=== PATIENT | female | born 1945 | race Caucasian/White ===

== ENCOUNTER 2019-01-14 09:25 | Outpatient (REF) | payer OTHER, SELFPAY ==
[2019-01-14 18:57] LABS: Calculated LDL 125 mg/dL; Cholesterol 190 mg/dL (50-200); Glucose 92 mg/dL (70-100); HDL Cholesterol 57 mg/dL (40-60); Triglyceride 42 mg/dL (30-150)
== END 2019-01-14 09:45 ==
LOC: NCHCN 09:25
PROVIDERS: PCP Physician Assistant; Visit Provider Internal Medicine
DX: E78.5 Hyperlipidemia, unspecified (principal)
CPT/HCPCS: 80048; 80061; 82947; 83721

== ENCOUNTER 2019-04-17 09:06 | Outpatient (REF) | payer OTHER, SELFPAY ==
[2019-04-17 19:19] LABS: Hemoglobin A1C 6.1 % (4.5-6.2)
== END 2019-04-17 09:26 ==
LOC: NCHCN 09:06
PROVIDERS: PCP Physician Assistant; Visit Provider Internal Medicine
DX: R73.03 Prediabetes (principal)
CPT/HCPCS: 83036

== ENCOUNTER → 2023-02-28 10:23 | Outpatient (CLI) | payer MEDICARE, SELFPAY ==
--- NOTE | 2023-02-28 | DI.US_ITS ---
Exam(s) US LOWER EXTREMITY VENOUS LT EXAM: US LOWER EXTREMITY VENOUS LT CLINICAL HISTORY: SWELLING LEFT LOWER LEG R22.42 R/O DVT. TECHNIQUE: Lower extremity venous ultrasound performed using grayscale, color-flow, and spectral Do ppler analysis. COMPARISON: No exams were available for comparison FINDINGS: The common femoral, profundus femoral through mid femoral vein veins demonstrate normal compressibili ty, augmentation, and color Doppler.Thrombus is visible from the distal femoral vein through the post erior tibial and peroneal veins. No saphenous vein thrombosis or other superficial venous thrombosis is seen. No hematoma or Porter's cyst is seen. IMPRESSION: The venous thrombosis demonstrated the distal femoral vein through calf veins. DATA REPOSITORY:
--- OUTSIDE RECORDS SUMMARY | 2023-02-28 10:25 | XMS_ITS | Continuity of Care Document ---
Author Name Unknown Organization [facility] Address [address] [place] [address] Care Team Providers Care Photoengraving Apprentice Name Role Phone Syed Lane Primary Care Physician Encounter [facility] Date(s): 02/14/23 - 02/14/[address] [id number] Discharge Disposition: Home or Self Care Attending Physician: Meseret Moran FIELD MACHINIST Admitting Physician: Meseret Moran NP Referring Physician: Meseret Moran FIELD MACHINIST Immunizations Given and Recorded Vaccine Date Status Refusal Reason SARS-CoV-2 (COVID-19) mRNA-1273 vaccine 10/11/20 R ecorded SARS-CoV-2 (COVID-19) mRNA-1273 vaccine 09/14/20 R ecorded Social History Social History Type Response Sex Female Patient Care team information Care Team Personnel Name: Syed Lane MD Position: Physician Member Role: Primary Care Physician Address: Address: [address] [place] [id number]
[2023-02-28 12:38] LABS: HCT 34.9 % (36.0-46.0); HGB 11.5 g/dL (11.2-15.7); MCV 88 fL (80-95); MPV 8.2 fL (8.0-11.0); Platelet Count 352 10^3/uL (130-400); RBC 3.96 10^6/uL (3.93-5.22); RDW 11.9 % (11.7-14.6); RDW-SD 38.9 fL; WBC 8.96 10^3/uL (4.4-10.8)
[2023-02-28 12:58] LABS: INR 0.9 (0.9-1.1); Prothrombin Time 9.2 sec (9.3-11.0)
[2023-02-28 13:02] LABS: ALT 16 U/L (14-59); AST 21 U/L (15-37); Albumin 3.2 g/dL (3.4-5.0); Alkaline Phosphatase 73 U/L (46-116); Anion Gap 7.3 mmol/L (3-11); BUN 15 mg/dL (7-18); Bilirubin, Total 0.3 mg/dL (0.2-1.0); CO2 27.7 mmol/L (21.0-32.0); CREATININE 0.8 mg/dL (0.55-1.02); Calcium 9.2 mg/dL (8.5-10.1); Chloride 96 mmol/L (98-107); Estimated GFR 76.79 (mL/min/1.73m2); Glucose 91 mg/dL (74-106); Potassium 4.7 mmol/L (3.5-5.1); Sodium 131 mmol/L (136-145); Total Protein 7.8 g/dL (6.4-8.2)
== END ==
PROVIDERS: PCP Physician Assistant; Visit Provider Physician Assistant
DX: R22.42 Localized swelling, mass and lump, left lower limb (principal); I82.402 Acute embolism and thrombosis of unspecified deep veins of left lower extremity
CPT/HCPCS: 36415; 80053; 85027; 85610; 85730; 93971

== ENCOUNTER → 2023-03-02 02:01 | Outpatient (CLI) | payer MEDICARE, SELFPAY ==
[2023-03-02] MEDS: Barium Sulfate 2% W/V-Berry Smoothie 450 ML BTL 950 ML PO (09:38)
[2023-03-02] MEDS: Normal Saline - Diluent 50 ML VIAL IJ (10:21)
[2023-03-02] MEDS: Omnipaque 350 MG/ML 500 ML BTL-Imaging package 80 ML IJ (10:23)
--- NOTE | 2023-03-02 10:32 | DI.CT_ITS ---
Exam(s) CT CHEST/ABD/PEL W EXAM: CT CHEST/ABD/PEL W CLINICAL HISTORY: HYPONATREMIA, E87.1, ACUTE DVT LT LEG, I82.402. TECHNIQUE: Imaging Protocol: Axial computed tomography images with coronal and sagittal reformatted images were created and reviewed CONTRAST MATERIAL: Intravenous: Omnipaque 350 Contrast volume:100 ml Oral: yes / COMPARISON: No exams were available for comparison FINDINGS: CHEST: Tracheobronchial tree: Patent where visualized. Pulmonary parenchyma: No consolidation or dominant measurable mass. Moderate centrilobular emphysema . Pleura: No effusion or pneumothorax. Lymph nodes: Within normal limits. Aorta: Thoracic portion non-dilated. Moderate atherosclerotic calcifications. Heart: Normal size. Minimal coronary artery calcifications. Bones: Unremarkable for age. No lytic or blastic lesions.No compression fractures. ABDOMEN: Liver: Normal density. No measurable mass. Gallbladder and biliary tract: Cholelithiasis. No gallbladder wall thickening or abnormal distension . Pancreas: Normal density, no abnormal calcifications or inflammatory process. Spleen: Normal. Kidneys: Normal size, contour and axis. No radiodense stones or obstructive uropathy. No suspicious m asses seen. Adrenal glands: No masses seen. Aorta: Abdominal portion non-dilated. Lymph nodes: Within normal limits. Soft tissues: Unremarkable. Stomach and small bowel: Small diverticulum of the descending duodenum. PELVIS: Bladder: Nearly empty. No gross wall thickening. Bowel: No obstruction or bowel wall thickening. Peritoneal cavity: No ascites, collection or mesenteric inflammatory response. Bones: Unremarkable for age.. Reproductive organs: No ovarian masses. IMPRESSION: Chest: Moderate centrilobular emphysema. No acute abnormality. Abdomen pelvis: Cholelithiasis. Small duodenal diverticulum. No acute abnormality. RADIATION DOSE DELIVERED: 1,170.65mGy.cm Total DLP DATA REPOSITORY: All CT scans at this facility are submitted to the National Radiology Data Registry (NRDR) Dose Index Registry (DIR) with the [employer] ([employer]). RADIATION OPTIMIZATION: All CT scans at this facility use at least one of these dose optimization te chniques: automated exposure control; mA and/or kV adjustment per patient size (includes targeted exa ms where dose is matched to clinical indication); or iterative reconstruction.
== END ==
PROVIDERS: PCP Physician Assistant; Visit Provider Physician Assistant
DX: K80.00 Calculus of gallbladder with acute cholecystitis without obstruction (principal); J43.2 Centrilobular emphysema
CPT/HCPCS: 74177; 71260

== ENCOUNTER 2024-10-02 17:22 | Outpatient (REF) | payer MEDICARE, SELFPAY ==
[2024-10-02 19:47] LABS: HCT 38.8 % (36.0-46.0); HGB 12.7 g/dL (11.2-15.7); MCH 29.2 pg (27.0-33.0); MCHC 32.7 % (32.0-36.0); MCV 89 fL (80-95); MPV 9.1 fL (8.0-11.0); Platelet Count 293 10^3/uL (130-400); RBC 4.35 10^6/uL (3.93-5.22); RDW 12.5 % (11.7-14.6); RDW-SD 41.1 fL; WBC 5.44 10^3/uL (4.4-10.8)
[2024-10-02 20:13] LABS: ALT 24 U/L (14-59); AST 21 U/L (15-37); Albumin 3.7 g/dL (3.4-5.0); Alkaline Phosphatase 81 U/L (46-116); BUN 16 mg/dL (7-18); Bilirubin, Total 0.4 mg/dL (0.2-1.0); CREATININE 0.8 mg/dL (0.55-1.02); Calcium 9.9 mg/dL (8.5-10.1); Chloride 101 mmol/L (98-107); Estimated GFR 75.84 (mL/min/1.73m2); Glucose 92 mg/dL (74-106); Potassium 4.4 mmol/L (3.5-5.1); Sodium 138 mmol/L (136-145); TSH 5.28 uIU/mL (0.36-3.74); Total Protein 7.4 g/dL (6.4-8.2)
== END 2024-10-02 17:23 | disposition home or self-care (01) ==
LOC: NCHCN 17:22
PROVIDERS: PCP Physician Assistant; Visit Provider Internal Medicine
DX: E03.9 Hypothyroidism, unspecified (principal); I82.409 Acute embolism and thrombosis of unspecified deep veins of unspecified lower extremity
CPT/HCPCS: 80053; 85027; 84443